=== PATIENT | female | born 1965 | race Caucasian/White ===

== ENCOUNTER 2020-12-15 13:08 | Emergency (ER) | payer OTHER, SELFPAY ==
[2020-12-15 14:20] VITALS: BP 109/63; PULSE 78; RESP 14; TEMP 36.7; O2SAT 99; BMI 36.6
--- NOTE | 2020-12-15 14:46 | HMH.EDUTC ---
[facility] [place] Clinical Impression: Contusion of forehead Qualifiers: Encounter type: initial encounter Qualified Code(s): S00.83XA - Contusion of other part of head, initial encounter Disposition: Home, Self-Care Condition on Discharge: Good Instructions: DI for Closed Head Injury, Closed Head Injury Additional Instructions: Follow up with your primary care doctor. Go to the ER if you have any decreased level of conciousness, worsening nausea/vomiting/ or any other signs of head injury. Take tylenol for pain for the next 24 hours or so. GO TO THE ER FOR ANY WORSENING SYMPTOMS OR CONCERNS Referrals: Elvis Moncada [Primary Care Provider] - Forms: Work/School Release Time of Disposition: 14:51 Medical Decision Making - Medical Records Medical records reviewed: No: I reviewed the patient's medical records. - Jaspal Inquiry Pt receiving controlled substance: No Vital Signs: 12/15/20 14:20 12/15/20 14:56 Temperature 98.0 F 98.0 F Temperature Source Oral Pulse Rate 78 Pulse Rate [Right Brachial] 78 Respiratory Rate 14 14 Blood Pressure 109/63 L Blood Pressure [Right Arm] 109/63 L Blood Pressure Mean [Right Arm] 78 Blood Pressure Source [Right Arm] Automatic Cuff Blood Pressure Position [Right Arm] Sitting 02 Sat by Pulse Oximetry 99 Oxygen Delivery Method Room Air Medical Decision Narrative: She did not have any loss or decrease of consciousness. Her neuro exam was completely normal. She in not on aspirin or any blood thinners. [facility] [place] - General Stated complaint: AO 12/15 BOTTLE OF GLUE FELL AND HIT HER ON HEAD Time Seen by Provider: 12/15/20 14:46 Mode of Arrival: Ambulatory Source of Information: Patient Limitations: No Limitations Description of Symptoms (Recalled from Triage Doc. by RN): PATIENT REPORTS APPROX 1250 TODAY A GALLON JUG OF GLUE FELL ON HER FOREHEAD AT WORK. DENIES LOC HEENT Symptoms (Recalled from RN notes): No Resp Symptoms (Recalled from RN notes): No Skin Symptoms (Recalled from RN notes): No MS Symptoms (Recalled from RN notes): Yes Functional Status (Recalled from RN notes): WNL - History of Present Illness Provider Complaint: She states that a gallon bottle of glue fell off of a shelf and hit her on the right side of her forehead. 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 She denies any loss of conciousness. She denies any dizziness or other symptoms. She does not take blood thinners or aspirin. - Related Data Allergies Allergy/AdvReac Type Severity Reaction Status Date / Time No Known Allergies Allergy Verified 12/15/20 14:44 - Worker's Comp Is this a Worker's Comp case?: No [facility] History - Hepatitis A Screen Drug use history?: No High risk sexual behaviors?: No History of sexually transmitted infection?: No Currently employed?: No Childcare worker?: No Do you have indoor plumbing?: Yes Do you have electricity?: Yes Attestation statement:: This patient has been screened for Hepatitis A risk factors. I have reviewed the patient's past medical history: Yes - Social History Alcohol Intake: never Occupational Status: other ROS Obtained: Yes All systems reviewed & no additional complaints - Constitutional Constitutional: Denies chills, Denies fever(s) - Musculoskeletal Musculoskeletal: Denies joint pain, Denies neck pain - Integumentary/Breasts Skin/Breast: Reports as per HPI - Neurologic Neurologic: Reports as per HPI Physical Exam - General General appearance: alert, in no apparent distress - Head Head exam: atraumatic, normocephalic, normal inspection - Eye Eye exam: Present: normal appearance, PERRL, EOMI - ENT ENT exam: Present: normal exam, normal oropharynx, mucous membranes moist, TM's normal bilaterally, normal external ear exam - Neck Neck exam: Present: normal inspection, full ROM, trachea midline. Absent: meningismus, lymphadenopathy - Chest Chest inspection: Present: normal inspection, symm
[2020-12-15 14:56] VITALS: BP 109/63; PULSE 78; RESP 14; TEMP 36.7; O2SAT 99
== END 2020-12-15 15:04 | disposition home or self-care (01) ==
PROVIDERS: Emergency Provider Nurse Practitioner Family; PCP Family Medicine
DX: S00.83XA Contusion of other part of head, initial encounter (principal); W20.8XXA Other cause of strike by thrown, projected or falling object, initial encounter; Y92.69 Other specified industrial and construction area as the place of occurrence of the external cause; Y99.0 Civilian activity done for income or pay
CPT/HCPCS: 99202; G0463

== ENCOUNTER 2021-03-19 10:13 | Emergency (ER) | payer OTHER, SELFPAY ==
[2021-03-19 10:16] VITALS: BP 121/69; PULSE 99; RESP 14; TEMP 36.6; O2SAT 100; BMI 34.9
--- NOTE | 2021-03-19 10:27 | XR_ITS ---
PROCEDURE: XR ANKLE RT MIN 3V CLINICAL INDICATION: fall Pain COMPARISON: No exams were available for comparison FINDINGS: No fracture or dislocation. No lytic or blastic change. There is normal mineralization. The lateral side of the talus is slightly tilted downward. This is of questionable clinical significance. No obvious overlying soft tissue swelling. Other findings:None. IMPRESSION: No acute fracture. Mild tilting of the talus possibly due to positioning. Dictated by: Craig Cruz MD 03/19/2021 10:44 Craig Cruz MD in [place] 03/19/2021 10:44
--- NOTE | 2021-03-19 10:59 | HMH.EDUTC ---
[facility] [place] Clinical Impression: Right ankle sprain Qualifiers: Encounter type: initial encounter Involved ligament of ankle: unspecified ligament Qualified Code(s): S93.401A - Sprain of unspecified ligament of right ankle, initial encounter Disposition: Home, Self-Care Condition on Discharge: Good Instructions: How to Use Crutches, Ankle Sprain, DI for Ankle Sprain Additional Instructions: Rest the extremity, apply ice for 15 minutes as tolerated three or four times per day, Elevate the extremity as tolerated while you are resting. Take ibuprofen for pain. Follow up with Dr. Leonard (orthopedics). I put in a referral but you need to call his office and schedule an appointment. Follow up with your regular doctor. GO TO THE ER FOR ANY WORSENING SYMPTOMS Referrals: Sammy Molina [Primary Care Provider] - Orlando Leonard MD [Staff Physician] - Forms: Work/School Release Time of Disposition: 11:05 Medical Decision Making - Medical Records Medical records reviewed: No: I reviewed the patient's medical records. - Jaspal Inquiry Pt receiving controlled substance: No Vital Signs: 03/19/21 10:16 03/19/21 11:09 Temperature 97.8 F 98 F Temperature Source Tympanic Pulse Rate 93 H Pulse Rate [Right] 99 H Respiratory Rate 14 17 Blood Pressure 119/72 Blood Pressure [Right Arm] 121/69 Blood Pressure Mean [Right Arm] 86 Blood Pressure Source [Right Arm] Automatic Cuff Blood Pressure Position [Right Arm] Sitting 02 Sat by Pulse Oximetry 100 Oxygen Delivery Method Room Air [facility] [place] - General Stated complaint: ao 03/19 injury Rt ankle Time Seen by Provider: 03/19/21 10:25 Mode of Arrival: Ambulatory Source of Information: Patient Limitations: No Limitations Description of Symptoms (Recalled from Triage Doc. by RN): pt c/o R ankle pain. pt states she tripped over a garden edger at work and fell. at this time she twisted her R ankle and she felt a pop. pt has visible swelling on the outside of her R ankle. pain is 5/10 HEENT Symptoms (Recalled from RN notes): No Resp Symptoms (Recalled from RN notes): No Skin Symptoms (Recalled from RN notes): No MS Symptoms (Recalled from RN notes): Yes (R ankle pain and swelling) Functional Status (Recalled from RN notes): na - History of Present Illness Provider Complaint: She states that this morning at her job at [employer], she twisted her right ankle and foot. Since then she has had pain of the foot and ankle. Her pain is worse with bearing weight. 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 I have reviewed the patient's past medical history: Yes - Social History Alcohol Intake: never Occupational Status: other ROS Obtained: Yes All systems reviewed & no additional complaints - Constitutional Constitutional: Denies chills, Denies fever(s) - Musculoskeletal Musculoskeletal: Reports as per HPI - Integumentary/Breasts Skin/Breast: Denies redness, Denies rash, Denies wounds Physical Exam - General General appearance: alert, in no apparent distress - Head Head exam: atraumatic, normocephalic, normal inspection - Eye Eye exam: Present: normal appearance, PERRL, EOMI - ENT ENT exam: Present: normal exam, normal oropharynx, mucous membranes moist, TM's normal bilaterally, normal external ear exam - Neck Neck exam: Present: normal inspection, full ROM, trachea midline. Absent:
[2021-03-19 11:09] VITALS: BP 119/72; PULSE 93; RESP 17; TEMP 36.6
== END 2021-03-19 11:23 | disposition home or self-care (01) ==
PROVIDERS: Emergency Provider Nurse Practitioner Family; PCP Physician Assistant
DX: S93.401A Sprain of unspecified ligament of right ankle, initial encounter (principal); X50.1XXA Overexertion from prolonged static or awkward postures, initial encounter; Y99.0 Civilian activity done for income or pay
CPT/HCPCS: 29515; 73610; 99202; G0463

== ENCOUNTER → 2023-01-16 15:48 | Outpatient (CLI) | payer BC, SELFPAY | PROVIDERS: Visit Provider Nurse Practitioner | DX: Z11.1 Encounter for screening for respiratory tuberculosis (principal) | CPT/HCPCS: 86580 ==